=== PATIENT | female | born 2005 | race African-American/Black ===

== ENCOUNTER 2024-03-08 01:59 | Emergency (ER) | payer MEDICAID, OTHER ==
[~2024-03-08] VITALS: Ht 152.4 cm; Wt 133.0 kg
[2024-03-08 02:31] VITALS: O2SAT 99
[2024-03-08 02:40] VITALS: BP 104/59; TEMP 97.8
[2024-03-08] MEDS: IBUPROFEN 400MG TABLET PO ONE (03:00)
[2024-03-08] MEDS: DEXAMETHASONE 10 MG/ML VIAL IM ONE (03:00)
[2024-03-08] MEDS: IPRATROPIUM/ALBUTEROL 0.5-3(2.5)MG/3ML NEB HHN ONE (04:10)
[2024-03-08 04:13] VITALS: PULSE 76; RESP 22; O2SAT 100
[2024-03-08] MEDS ORDERED: NAPR-1176 MT (04:13)
[2024-03-08] MEDS ORDERED: LIDO700A15 TP (04:13)
[2024-03-08 04:24] VITALS: RESP 16
== END 2024-03-08 04:23 | disposition home or self-care (01) ==
LOC: ER 01:59
DX: S40.011A Contusion of right shoulder, initial encounter (principal); M79.662 Pain in left lower leg; J45.909 Unspecified asthma, uncomplicated; V49.40XA Driver injured in collision with unspecified motor vehicles in traffic accident, initial encounter; Y93.89 Activity, other specified; Y92.89 Other specified places as the place of occurrence of the external cause; Y99.8 Other external cause status
CPT/HCPCS: 73030; 73590; 94640; 99284; J1100; Z7610 ×3